=== PATIENT | female | born 1960 | race Caucasian/White ===

== ENCOUNTER → 2017-03-02 | Outpatient (CLI) | payer OTHER ==
--- NOTE | 2017-03-02 16:54 | REPMRS ---
Patient History The patient states she had a clinical breast exam in 03/2017. Patient is postmenopausal. No known family history of cancer. Benign stereotactic core biopsy of the left breast, 2001. Digital Woman Screen Mammo: March 02, 2017 - Exam #: [id number] Bilateral CC and MLO view(s) were taken. Technologist: Anita Preciado Technologist Prior study comparison: January 28, 2016, digital woman screen mammo performed at [facility]. January 17, 2015, digital woman screen mammo performed at [facility]. FINDINGS: There are scattered fibroglandular densities. There has been no change in the appearance of the mammogram from the prior studies. There is a moderate amount of residual fibroglandular tissue which is fairly symmetric. There is no interval development of dominant mass, architectural distortion, or clustered microcalcification suggestive of malignancy. Scattered lymph nodes are seen in the right axilla. No significant changes when compared with prior studies. ASSESSMENT: BI-RADS/ACR category 2 mammogram. Benign finding(s). Recommendation Routine screening mammogram in 1 year (for women over age 40). This mammogram was interpreted with the aid of an FDA-approved computer-aided dectection system. A. Negative x-ray reports should not delay biopsy if a dominant or clinically suspicious mass is present. B. Four to eight percent of cancers are not identified by mammography. C. Adenosis and dense breast may obscure an underlying neoplasm. Electronically Signed By: James Asher MD 03/02/17 [id number]
== END ==
LOC: M WHC 10:02
PROVIDERS: ATTEND Nurse Practitioner Family
DX: Z12.31 Encounter for screening mammogram for malignant neoplasm of breast (principal)

== ENCOUNTER → 2017-07-28 | Outpatient (CLI) | payer OTHER | LOC: M RAD 08:45 | DX: M54.2 Cervicalgia (principal) ==

== ENCOUNTER → 2018-03-03 | Outpatient (CLI) | payer OTHER | LOC: M WHC 09:37 | DX: Z12.31 Encounter for screening mammogram for malignant neoplasm of breast (principal); Z78.0 Asymptomatic menopausal state | CPT/HCPCS: 77067 ==

== ENCOUNTER → 2019-03-06 | Outpatient (REF) | payer OTHER ==
[2019-03-08 14:51] LABS: HPV HYBRID CAPTURE II Negative (Negative)
== END ==
LOC: M SFHCWAGY 08:36
PROVIDERS: ATTEND Nurse Practitioner Family
DX: Z12.4 Encounter for screening for malignant neoplasm of cervix (principal)

== ENCOUNTER → 2019-03-06 | Outpatient (CLI) | payer OTHER ==
--- NOTE | 2019-03-06 09:54 | REPMRS ---
Patient History The patient states she had a clinical breast exam in 03/2019. No known family history of cancer. Benign stereotactic core biopsy of the left breast, 2001. No Hormone Replacement Therapy 3D TOMOSYNTHESIS WAS PERFORMED. The [facility] lifetime risk for breast cancer is 8.7%. Digital Woman Screen Mammo: March 06, 2019 - Exam #: [id number] Bilateral CC and MLO view(s) were taken. Technologist: Peggy Potts, Technologist Prior study comparison: March 03, 2018, bilateral digital woman screen mammo performed at [facility]. March 02, 2017, digital woman screen mammo performed at [facility] [place] [facility]. FINDINGS: The breast tissue is heterogeneously dense. This may lower the sensitivity of mammography. There has been no change in the appearance of the mammogram from the prior studies. There is a moderate amount of residual fibroglandular tissue which is fairly symmetric. There is no interval development of dominant mass, areas of architectural distortion, or clustered microcalcification typical of malignancy. Assessment: BI-RADS/ACR category 1 mammogram. Negative Mammogram. Recommendation Routine screening mammogram in 1 year (for women over age 40). This mammogram was interpreted with the aid of an FDA-approved computer-aided dectection system. Electronically Signed By: Eric Abernathy MD 03/06/19 0953
== END ==
LOC: M WHC 08:11
PROVIDERS: ATTEND Nurse Practitioner Family
DX: Z12.31 Encounter for screening mammogram for malignant neoplasm of breast (principal)

== ENCOUNTER 2019-05-14 09:07 | Day surgery (SDC) | payer OTHER ==
[~2019-05-14] VITALS: Ht 172.7 cm; Wt 66.9 kg
[~2019-05-14 09:07] MED LIST: CALC1TAB63 PO; CHOL100029 PO; LATA0.0015 OU; MULTCAP PO; NS 1,000 ML IV ONE
[2019-05-14] MEDS ORDERED: PROPOFOL 200 MG/20 ML VIAL As Ordered ONE ×2 (09:58→10:46)
[2019-05-14] MEDS ORDERED: LIDOCAINE 2% INJ 100 MG/5 ML SDV (FOR ANES.) As Ordered ONE (09:58)
--- NOTE | 2019-05-14 10:57 | ROOR ---
Patient Name: Violeta Brambila Procedure Date: 05/14/2019 10:25 AM Date of : 1960 Age: 58 Room: [facility] Gender: Female Note Status: Finalized Procedure: Total Colonoscopy to Cecum + Biopsy Polypectomy Indications: Screening for colorectal malignant neoplasm Providers: Daryn Paul MD Referring MD: Leta Sandoval DO Requesting Provider: Medicines: Monitored Anesthesia Care Complications: No immediate complications. Procedure: Pre-Anesthesia Assessment: - The heart rate, respiratory rate, oxygen saturations, blood pressure, adequacy of pulmonary ventilation, and response to care were monitored throughout the procedure. The Colonoscope was introduced through the anus and advanced to the cecum, identified by appendiceal orifice and ileocecal valve. The colonoscopy was performed without difficulty. The patient tolerated the procedure well. The quality of the bowel preparation was excellent. Findings: The perianal and digital rectal examinations were normal. Non-bleeding internal hemorrhoids were found during retroflexion. The hemorrhoids were small and Grade I (internal hemorrhoids that do not prolapse). A small polyp was found in the rectum. The polyp was sessile. The polyp was removed with a jumbo cold forceps. Resection and retrieval were complete. No other significant abnormalities were identified in a careful examination of the remainder of the colon. The exam was otherwise without abnormality on direct and retroflexion views. Impression: - Non-bleeding internal hemorrhoids. - One small polyp in the rectum, removed with a jumbo cold forceps. Resected and retrieved. - The examination was otherwise normal on direct and retroflexion views. - The exam was otherwise normal to the cecum. Recommendation: - Patient has a contact number available for emergencies. The signs and symptoms of potential delayed complications were discussed with the patient. Return to normal activities tomorrow. Written discharge instructions were provided to the patient. - High fiber diet. - Discharge patient to home. - Continue present medications. - Await pathology results. - Telephone GI clinic for pathology results in 1 week. - Repeat colonoscopy in 10 years for screening purposes. - Return to referring physician. - The findings and recommendations were discussed with the patient's family. Daryn Paul MD Daryn Paul MD 05/14/2019 10:57:13 AM Electronically signed by Daryn Paul MD Number of Addenda: 0 Note Initiated On: 05/14/2019 10:25 AM Estimated Blood Loss: Estimated blood loss: none.
[2019-05-14 11:10] VITALS: BP 113/80
== END 2019-05-14 11:33 | disposition home or self-care (01) ==
LOC: M OPP 09:07
PROVIDERS: ATTEND Internal Medicine Gastroenterology
DX: Z12.11 Encounter for screening for malignant neoplasm of colon (principal); D12.8 Benign neoplasm of rectum; K64.0 First degree hemorrhoids; G43.909 Migraine, unspecified, not intractable, without status migrainosus; Z79.899 Other long term (current) drug therapy

== ENCOUNTER → 2020-03-07 | Outpatient (REF) | payer OTHER ==
[~2020-03-07] MED LIST changes: -NS 1,000 ML IV ONE
== END ==
LOC: M SFHCPLAZ 10:05
PROVIDERS: ATTEND Nurse Practitioner Family
DX: Z12.4 Encounter for screening for malignant neoplasm of cervix (principal)

== ENCOUNTER → 2020-03-07 | Outpatient (CLI) | payer OTHER ==
--- NOTE | 2020-03-27 09:48 | REPMRS ---
Patient History The patient states she had a clinical breast exam in 03/2020. Patient is postmenopausal. No known family history of cancer. Benign stereotactic core biopsy of the left breast, 2001. No Hormone Replacement Therapy Digital Woman Screen Mammo: March 07, 2020 - Exam #: [id number] Bilateral CC and MLO view(s) were taken. Technologist: Teena Storey, Technologist Prior study comparison: March 06, 2019, bilateral digital woman screen mammo performed at [facility]. March 03, 2018, bilateral digital woman screen mammo performed at [facility]. March 02, 2017, digital woman screen mammo performed at [facility]. FINDINGS: There are scattered fibroglandular densities. The Volpara volumetric breast density category is:B. There has been no change in the appearance of the mammogram from the prior studies. There is a mild amount of scattered fibroglandular density which is fairly symmetric. There is no interval development of dominant mass, architectural distortion, or grouped microcalcification suggestive of malignancy. 3-D tomosynthesis shows no additional findings. Report was delayed due to a protracted computer network disruption experienced by this facility. Assessment: BI-RADS/ACR category 1 mammogram. Negative Mammogram. Recommendation Routine screening mammogram of both breasts in 1 year (for women over age 40). This patient's Lifetime Breast Cancer Risk is estimated at 8.4 %. This mammogram was interpreted with the aid of an FDA-approved computer-aided dectection system. Electronically Signed By: Francois Jenkins MD 03/27/20 0946
== END ==
LOC: M WHC 17:13
PROVIDERS: ATTEND Nurse Practitioner Family
DX: Z12.31 Encounter for screening mammogram for malignant neoplasm of breast (principal); Z78.0 Asymptomatic menopausal state

== ENCOUNTER → 2020-06-17 | Outpatient (CLI) | payer OTHER ==
--- NOTE | 2020-06-17 16:27 | DEXA ---
INDICATION: M85.80 [facility] DISRD OF BONE DENSITY AND STRUCTURE. COMPARISON: None. TECHNIQUE: Bone density was measured using dual-energy x-ray absorptiometry (DEXA). FINDINGS: AP SPINE L1-L4 BMD 0.971 g/cm2 Young Adult T-Score -1.8 Age Matched Z-Score -0.5. LT FEMUR, TOTAL BMD 0.893 g/cm2 Young Adult T-Score -0.9 Age Matched Z-Score 0.1. LT NECK BMD 0.870 g/cm2 Young Adult T-Score -1.2 Age Matched Z-Score 0.1. RT FEMUR, TOTAL BMD 0.916 g/cm2 Young Adult T-Score -0.7 Age Matched Z-Score 0.3. RT NECK BMD 0.889 g/cm2 Young Adult T-Score -1.1 Age Matched Z-Score 0.2. IMPRESSION: There is low bone density of the spine. There is low bone density of the left hip. There is low bone density of the right hip. FOLLOW-UP: Recommendation for the next bone density exam: 2 years. <Electronically signed by Eric Abernathy > 06/17/20 [id number]
== END ==
LOC: M WHC 12:51
PROVIDERS: ATTEND Internal Medicine
DX: M85.88 Other specified disorders of bone density and structure, other site (principal); M85.851 Other specified disorders of bone density and structure, right thigh; M85.852 Other specified disorders of bone density and structure, left thigh

== ENCOUNTER → 2021-03-09 | Outpatient (CLI) | payer OTHER | LOC: M WHC 14:32 | PROVIDERS: ATTEND Nurse Practitioner Women's Health | DX: Z12.31 Encounter for screening mammogram for malignant neoplasm of breast (principal) ==

== ENCOUNTER → 2022-03-10 | Outpatient (REF) | payer OTHER | LOC: M SFHCWAGY 17:16 | PROVIDERS: ATTEND Obstetrics & Gynecology | DX: Z12.4 Encounter for screening for malignant neoplasm of cervix (principal) ==

== ENCOUNTER → 2023-01-05 | Outpatient (CLI) | payer OTHER | LOC: M RAD 16:30 | PROVIDERS: ATTEND Internal Medicine | DX: D25.9 Leiomyoma of uterus, unspecified (principal); R19.09 Other intra-abdominal and pelvic swelling, mass and lump; Z80.49 Family history of malignant neoplasm of other genital organs ==

== ENCOUNTER → 2023-03-14 | Outpatient (CLI) | payer OTHER | LOC: M WHC 12:53 | PROVIDERS: ATTEND Obstetrics & Gynecology | DX: Z12.39 Encounter for other screening for malignant neoplasm of breast (principal) ==

== ENCOUNTER → 2024-01-25 | Outpatient (CLI) | payer MEDICARE, OTHER | LOC: M WHC 09:58 | PROVIDERS: ATTEND Internal Medicine | DX: Z13.820 Encounter for screening for osteoporosis (principal); M85.88 Other specified disorders of bone density and structure, other site; M85.851 Other specified disorders of bone density and structure, right thigh; M85.852 Other specified disorders of bone density and structure, left thigh ==

== ENCOUNTER → 2024-03-21 | Outpatient (CLI) | payer OTHER, MEDICARE | LOC: M WHC 09:34 | PROVIDERS: ATTEND Obstetrics & Gynecology | DX: Z12.31 Encounter for screening mammogram for malignant neoplasm of breast (principal) ==